=== PATIENT | male | born 1980 | race Caucasian/White ===

== ENCOUNTER 2018-10-08 14:08 | Emergency (ER) | payer MEDICARE, MEDICAID ==
[~2018-10-08] VITALS: Ht 180.3 cm; Wt 97.5 kg
[2018-10-08 14:17] VITALS: BP 134/85
[2018-10-08] MEDS ORDERED: SUMAtriptan SUCCINATE 6 MG/0.5 ML VL SC ONE (16:00)
== END 2018-10-08 16:35 | disposition home or self-care (01) ==
LOC: ER 14:13
DX: G43.909 Migraine, unspecified, not intractable, without status migrainosus (principal); J01.90 Acute sinusitis, unspecified; Z88.0 Allergy status to penicillin
CPT/HCPCS: 96372; 99283; J3030